=== PATIENT | female | born 1975 | race Caucasian/White ===

== ENCOUNTER 2016-05-25 16:19 | Emergency (ER) | payer BC, OTHER ==
[2016-05-25] MEDS ORDERED: SODIUM CHLORIDE 0.9% 1,000 ML IV STA (18:07)
[2016-05-25] MEDS ORDERED: ONDANSETRON 4 MG/2 ML VIAL IVP STA (18:07)
--- NOTE | 2016-05-25 18:11 | ED ---
General Adult HPI - General Chief complaint: Nausea/Vomiting/Diarrhea Stated complaint: NVD Time Seen by Provider: 05/25/16 16:39 Source: patient, family, RN notes reviewed, old records reviewed Mode of arrival: ambulatory Limitations: no limitations - History of Present Illness Initial comments: Chief complaint and history of present illness a 40-year-old female with complaint of diarrhea for 2 days. Nausea but no vomiting. She states that it occurs because of stress. Denies eating any bad food no [place] environment has the same problem. She tried [id number] Imodium without effect. Is not complaining of pain. - Related Data Home Medications Medication Instructions Recorded Confirmed HYDROcodone/APAP 7.5-325MG [[place] 1 tab PO TID 07/25/15 05/25/16 7.5-325] Citalopram Hydrobromide [CeleXA] 40 mg PO DAILY 05/25/16 05/25/16 Metoprolol Succinate (ER) [Toprol 25 mg PO DAILY 05/25/16 05/25/16 Xl] Pregabalin [Lyrica] 100 mg PO BID 05/25/16 05/25/16 lamoTRIgine [LaMICtal] 200 mg PO DAILY 05/25/16 05/25/16 Previous Rx's Medication Instructions Recorded LORazepam [Ativan] 1 mg PO BID PRN #7 tab 10/23/15 Ciprofloxacin HCl [Cipro] 500 mg PO Q12HR #6 tablet 05/25/16 Metoclopramide HCl [Reglan] 5 mg PO TID #6 tablet 05/25/16 Allergies Allergy/AdvReac Type Severity Reaction Status Date / Time No Known Allergies Allergy Verified 05/25/16 16:56 Review of Systems ROS Statement: Those systems with pertinent positive or pertinent negative responses have been documented in the HPI. Review of systems no visual acuity changes no headache. She reports she recently had dentures made within the past month but they don't fit quite right and this seems to be hurting her mouth. She was told talked again to the dentist or the person who made the dentures. No chest pain or shortness of breath no abdominal pain but she has had diarrhea and nausea no vomiting. No difficulty urinating. Chronic back pain. All systems are reviewed past medical problems significant for hypothyroidism. Bipolar disorder. Stress problems at all causes diarrhea. Also previously irregular menstrual cycles fibroid tumors and hypertension. Her surgeries include partial hysterectomy, is preceded by tubal ligation and uterine ablation. She's had a cholecystectomy , right carpal tunnel surgery D&C. Family history grandfather and her biological mother lung cancer. Patient denies any ALLERGIES she is quit smoking 10 years ago denies alcohol use ROS Other: All systems not noted in ROS Statement are negative. Past Medical History Past Medical History: No Reported History Additional Past Medical History / Comment(s): IRREGULAR MENSES. FIBROID TUMORS IN UTERUS macular degeneration. chronic back pain History of Any Multi-Drug Resistant Organisms: None Reported Past Surgical History: Cholecystectomy, Hysterectomy, Tubal Ligation, Uterine Ablation Additional Past Surgical History / Comment(s): RT CARPAL AND CUBITAL TUNNEL RELEASE. teeth extraction. D & C. robot hyst Past Anesthesia/Blood Transfusion Reactions: No Reported Reaction Past Psychological History: Anxiety, Bipolar, Depression Smoking Status: Former smoker Past Alcohol Use History: None Reported Additional Past Alcohol Use History / Comment(s): QUIT SMOKING IN 2007. SMOKED ABOUT 3 CIG. DAILY FOR ABOUT 6 MTHS Past Drug Use History: None Reported - Past Family History Mother Family Medical History: Cancer General Exam - General Exam Comments Initial Comments: General: The patient is awake and alert, states she has had nausea for 2 days with diarrhea for 2 days spell. States under stress. Vital signs are temperature 97.9 pulse 104 respiratory rate 20 pulse ox 97% room air blood pressure 143/83. Eye: Pupils are equal, round and reactive to light, extra-ocular movements are intact ; there is normal conjunctiva bilaterally. No signs of icterus. Ears, nose, mouth and throat: There are moist mucous membranes and no oral lesions. Patient is edentulous except for one tooth #27 still present. Neck: The neck is supple, there is no tenderness or JVD. Cardiovascular: There is a regular rate and rhythm. No murmur, rub or gallop is appreciated. Respiratory: Lungs are clear to auscultation, respirations are non-labored, breath sounds are equal. No wheezes, stridor, rales, or rhonchi. Gastrointestinal: Soft, non-distended, non-tender abdomen without masses or organomegaly noted. There is no rebound or guarding present. Chronic low back pain. Active bowel sounds Back: Chronic low back pain Musculoskeletal: Normal ROM, no tenderness, There is no pedal edema. No complaints of tingling or pain to her legs. Neurological: No complaint of or any neurological deficits appreciated. Skin: Skin is warm and dry and no rashes or lesions are noted. Psychiatric: History of bipolar disorder. States under stress but not stating that she is suicidal. Limitations: no limitations Course Vital Signs 05/25/16 16:32 Temperature 97.9 F Pulse Rate 104 H Respiratory 20 Rate Blood Pressure 144/83 O2 Sat by Pulse 97 Oximetry Medical Decision Making - Medical Decision Making Medical decision-making. The patient's white count 10.6 hemoglobin 12 medical 38 with a potassium 4.4. BUN 11 creatinine 0.8 GFR greater than 60. Glucose 95. Amylase lipase normal limits. X-ray of the abdomen was done and reviewed by radiologist his findings are there is no acute sign of intestinal obstruction or pneumoperitoneum. Fecal pattern is normal. There are clips from cholecystectomy. Lung bases are clear. There are no pathologic calcifications over the kidneys. Impression; nonacute abdomen. No change. As read by Dr. Oswald The patient be placed on Cipro 500 twice a day for 3 days for traveler's type diarrhea also advised to take yogurt to reestablish intestinal bacteria. Also advised to use Pepto-Bismol. She'll be given a prescription for Zofran. - Lab Data Result diagrams: 05/25/16 18:11 05/25/16 18:11 Lab Results 05/25/16 05/25/16 Range/Units 18:11 18:11 WBC 10.6 (3.8-10.6) k/uL RBC 4.92 (3.80-5.40) m/uL Hgb 12.1 (11.4-16.0) gm/dL Hct 38.7 (34.0-46.0) % MCV 78.6 L (80.0-100.0) fL MCH 24.6 L (25.0-35.0) pg MCHC 31.3 (31.0-37.0) g/dL RDW 17.1 H (11.5-15.5) % Plt Count 401 (150-450) k/uL Neutrophils % 67 % Lymphocytes % 24 % Monocytes % 4 % Eosinophils % 3 % Basophils % 1 % Neutrophils # 7.1 (1.3-7.7) k/uL Lymphocytes # 2.5 (1.0-4.8) k/uL Monocytes # 0.4 (0-1.0) k/uL Eosinophils # 0.3 (0-0.7) k/uL Basophils # 0.1 (0-0.2) k/uL Anisocytosis Slight Microcytosis Slight Sodium 139 (137-145) mmol/L Potassium 4.4 (3.5-5.1) mmol/L Chloride 105 (98-107) mmol/L Carbon Dioxide 22 (22-30) mmol/L Anion Gap 12 mmol/L BUN 11 (7-17) mg/dL Creatinine 0.80 (0.52-1.04) mg/dL Est GFR (MDRD) Af Amer >60 (>60 ml/min/1.73 sqM) Est GFR (MDRD) Non-Af >60 (>60 ml/min/1.73 sqM) Glucose 95 (74-99) mg/dL Calcium 9.6 (8.4-10.2) mg/dL Total Bilirubin 0.7 (0.2-1.3) mg/dL AST 22 (14-36) U/L ALT 21 (9-52) U/L Alkaline Phosphatase 104 (38-126) U/L Total Protein 8.3 H (6.3-8.2) g/dL Albumin 4.3 (3.5-5.0) g/dL Amylase 45 (30-110) U/L Lipase 57 (23-300) U/L Disposition Clinical Impression: Gastroenteritis Disposition: HOME SELF-CARE Condition: Stable Instructions: Acute Nausea and Vomiting (ED), Acute Diarrhea (ED) Additional Instructions: Advance diet. Use yogurt, Pepto-Bismol, Zofran for nausea, Cipro 500 twice a day for 3 days. Follow-up. With your family physician. Prescriptions: Ciprofloxacin HCl [Cipro] 500 mg PO Q12HR #6 tablet Metoclopramide HCl [Reglan] 5 mg PO TID #6 tablet Time of Disposition: 19:36
[2016-05-25 18:30] LABS: Anisocytosis Slight; Basophils # (A) 0.1 k/uL (0-0.2); Basophils % (A) 1 %; Eosinophils # (A) 0.3 k/uL (0-0.7); Eosinophils % (A) 3 %; HCT 38.7 % (34.0-46.0); HDW 2.68; HGB 12.1 gm/dL (11.4-16.0); Luc # (Auto) 0.25; Luc % (Auto) 2; Lymphocytes # (A) 2.5 k/uL (1.0-4.8); Lymphocytes % (A) 24 %; MCH 24.6 pg (25.0-35.0); MCHC 31.3 g/dL (31.0-37.0); MCV 78.6 fL (80.0-100.0); Mean Platelet Volume 6.4; Microcytosis Slight; Monocytes # (A) 0.4 k/uL (0-1.0); Monocytes % (A) 4 %; Neutrophils # (A) 7.1 k/uL (1.3-7.7); Neutrophils % (A) 67 %; RBC 4.92 m/uL (3.80-5.40); RDW 17.1 % (11.5-15.5); WBC 10.6 k/uL (3.8-10.6)
[2016-05-25 18:38] LABS: ALT 21 U/L (9-52); AST 22 U/L (14-36); Alkaline Phosphatase 104 U/L (38-126); Amylase 45 U/L (30-110); Anion Gap 12 mmol/L; Blood Urea Nitrogen 11 mg/dL (7-17); Calcium 9.6 mg/dL (8.4-10.2); Carbon Dioxide 22 mmol/L (22-30); Chloride 105 mmol/L (98-107); Glucose 95 mg/dL (74-99); Non-African American GFR(MDRD) >60 (>60 ml/min/1.73 sqM); Potassium 4.4 mmol/L (3.5-5.1); Sodium 139 mmol/L (137-145); Total Bilirubin 0.7 mg/dL (0.2-1.3); Total Protein 8.3 g/dL (6.3-8.2)
--- NOTE | 2016-05-25 18:42 | XR ---
EXAMINATION TYPE: XR KUB DATE OF EXAM: 05/25/2016 6:32 PM COMPARISON: 10/06/2012 HISTORY: Abdominal pain TECHNIQUE: 2 views FINDINGS: There is no sign of intestinal obstruction or pneumoperitoneum. Fecal pattern is normal. Th ere are clips from cholecystectomy. Lung bases are clear. There are no pathologic calcifications over the kidneys. IMPRESSION: Nonacute abdomen. No change.
[2016-05-25 19:58] VITALS: BP 165/88; PULSE 80; RESP 18; TEMP 98.2
== END 2016-05-25 20:04 | disposition home or self-care (01) ==
LOC: EC 16:19
DX: K52.9 Noninfective gastroenteritis and colitis, unspecified (principal); F31.9 Bipolar disorder, unspecified; F41.9 Anxiety disorder, unspecified; Z79.891 Long term (current) use of opiate analgesic; Z79.899 Other long term (current) drug therapy
CPT/HCPCS: 36415; 80053; 82150; 83690; 85025; 87324; 74000; 99284; 96374; 96361 ×2; J2405

== ENCOUNTER → 2016-07-21 | Outpatient (CLI) | payer BC, OTHER ==
[2016-07-21 19:13] LABS: ALT 30 U/L (9-52); AST 19 U/L (14-36); Alkaline Phosphatase 118 U/L (38-126); Anion Gap 11 mmol/L; Blood Urea Nitrogen 11 mg/dL (7-17); Calcium 9.7 mg/dL (8.4-10.2); Carbon Dioxide 24 mmol/L (22-30); Chloride 106 mmol/L (98-107); Cholesterol 199 mg/dL (<200); Glucose 123 mg/dL (74-99); HDL Cholesterol 36 mg/dL (40-60); Non-African American GFR(MDRD) >60 (>60 ml/min/1.73 sqM); Potassium 4.6 mmol/L (3.5-5.1); Sodium 141 mmol/L (137-145); Total Bilirubin 0.4 mg/dL (0.2-1.3); Total Protein 7.5 g/dL (6.3-8.2); Triglycerides 238 mg/dL (<150)
== END | disposition home or self-care (01) ==
LOC: MMGSC 10:42
PROVIDERS: ATTEND Family Medicine
DX: E03.9 Hypothyroidism, unspecified (principal); I10 Essential (primary) hypertension; F32.9 Major depressive disorder, single episode, unspecified
CPT/HCPCS: 36415; 80053; 80061; 80175; 84439; 84443